=== PATIENT | male | born 1975 | race Caucasian/White ===

== ENCOUNTER 2016-06-11 21:19 | Emergency (ER) | payer OTHER ==
[~2016-06-11] VITALS: Ht 188 cm; Wt 186.0 kg
--- NOTE | 2016-06-11 22:19 | ED UPPER/LOWER EXTREMITY COMPL ---
History of Present Illness General Chief Complaint: Lower Extremity Problems Stated Complaint: PT HAS A JAX HORSE IN THE RIGHT 24 HOURS Source: patient Exam Limitations: no limitations Vital Signs & Intake/Output Vital Signs & Intake/Output Vital Signs Date Time Temp Pulse Resp B/P Pulse O2 O2 Flow FiO2 Ox Delivery Rate 06/11 2235 168/92 06/11 2211 99.0 97 18 174/103 98 Room Air ED Intake and Output 06/12 0000 06/11 1200 Intake Total 0 Output Total Balance 0 Intake, Oral 0 Patient 410 lb Weight Allergies Coded Allergies: No Known Drug Allergies (06/11/16) Reconcile Medications Cyclobenzaprine HCl 10 MG TABLET 1 TAB PO 4 TIMES/DAY PRN MUSCLE SPASM Hydrocodone/Acetaminophen (Vicodin 5-300 MG Tablet) 5 MG-300 MG TABLET 1-2 TAB PO TID PRN pain ten...[id number] Ibuprofen 800 MG TABLET 1 TAB PO TID PRN pain Prednisone 50 MG TABLET 1 TAB PO DAILY INFLAMMATION Triage Note: PT TO ED C/O LEFT LEG PAIN, WORSE FOR THE LAST WEEK, STARTED A MONTH AGO. WENT TO WALK IN ON TUESDAY, WAS TOLD WAS SCIATICA, HAD BEEN TAKING FLEXERIL AND VICODIN THIS WEEK, STILL IN PAIN. CAN'T SLEEP. DR VERGARA IN TO EVAL PT IN TRIAGE. NO SWELLING OR REDNESS NOTED Triage Nurses Notes Reviewed? yes Onset: Gradual Duration: week(s):, waxing and waning Timing: recent history Severity: moderate Pain/Injury Location: Left: Leg. Method of Injury: unknown Modifying Factors: Improves With: pain medication. Worsens With: movement. Associated Symptoms: "I feel the pain shooting down my leg." HPI: 40-year-old gentleman with history of sciatica presents with left leg pain. She states that for the past 4 weeks he has had pain that shoots from behind his buttock down behind his leg into the lateral aspect of his left calf. He notes, "this feels just like sciatica." He notes that he was given Vicodin and Flexeril at an urgent care center. He states this medicine is not working. He notes no edema or redness or tenderness of his lower extremities. He is otherwise well and has no concerns. Past History Travel History Traveled to [place] past 21 day No Medical History Any Pertinent Medical History? see below for history Surgical History Surgical History: none Family History Hx Contributory? No Review of Systems Review of Systems Constitutional: Reports: no symptoms. EENTM: Reports: no symptoms. Respiratory: Reports: no symptoms. Cardiovascular: Reports: no symptoms. Gastrointestinal/Abdominal: Reports: no symptoms. Genitourinary: Reports: no symptoms. Musculoskeletal: Reports: no symptoms. Skin: Reports: no symptoms. Neurological/Psychological: Reports: no symptoms. Hematologic/Endocrine: Reports: no symptoms. Immunological: Reports: no symptoms. All Other Systems: Reviewed and Negative Physical Exam Physical Exam General Appearance: well developed/nourished, mild distress Head: atraumatic Eyes: Bilateral: normal appearance. Ears, Nose, Throat: normal pharynx, normal ENT inspection, hearing grossly normal Neck: normal inspection, supple Cardiovascular/Respiratory: regular rate/rhythm Back: normal inspection, muscle spasm, no vertebral tenderness Leg Left: no edema. No erythema. No focal tenderness. negative Homans sign., moderate pain elicited with straight leg raise. Skin: intact, normal color, warm/dry Lymphatic: no anterior cervical daniel Progress Differential Diagnosis: sciatica versus muscle strain versus iliotibial band syndrome. I doubt DVT. Plan of Care: Ascription for supportive medicines were given. I referred him to get an ultrasound Tuesday to assess for DVT.. I encouraged close follow-up. Departure Departure Disposition: HOME OR SELF CARE Condition: Stable Clinical Impression Primary Impression: Sciatica Departure Forms: Customer Survey General Discharge Information Prescriptions: Current Visit Scripts Hydrocodone/Acetaminophen (Vicodin 5-300 MG Tablet) 1-2 TAB PO TID PRN pain #10 TAB ten...[id number] Ibuprofen 1 TAB PO TID PRN pain #30 TAB Ref 1 Cyclobenzaprine HCl 1 TAB PO 4 TIMES/DAY PRN MUSCLE SPASM #30 TAB Ref 1 Prednisone 1 TAB PO DAILY #5 TAB
[2016-06-11] MEDS ORDERED: CYCLOBENZAPRINE10 M1 PO (22:20)
[2016-06-11] MEDS ORDERED: IBUPROFEN800 M1 PO (22:20)
[2016-06-11] MEDS ORDERED: VICODIN 5-3001 EACH PO (22:20)
[2016-06-11] MEDS ORDERED: PREDNISONE50 M1 PO (22:33)
[2016-06-11 22:35] VITALS: BP 168/92
== END 2016-06-11 22:38 ==
LOC: ERH 21:19
DX: M54.42 Lumbago with sciatica, left side (principal)